=== PATIENT | female | born 1985 | race Caucasian/White ===

== ENCOUNTER → 2021-05-09 10:34 | Outpatient (BNVA) | payer BC, MEDICAID, SELFPAY | PROVIDERS: Visit Provider Nurse Practitioner Women's Health | DX: Z34.01 Encounter for supervision of normal first pregnancy, first trimester (principal) | CPT/HCPCS: 81000 ==

== ENCOUNTER → 2021-05-18 08:51 | Outpatient (BNVA) | payer BC, MEDICAID, SELFPAY | PROVIDERS: Visit Provider Obstetrics & Gynecology | DX: Z34.80 Encounter for supervision of other normal pregnancy, unspecified trimester (principal); Z34.01 Encounter for supervision of normal first pregnancy, first trimester | CPT/HCPCS: 80307; 81000; 85025; 86592; 86762; 86803; 86850; 86900; 87086; 87340; 87806 ==

== ENCOUNTER → 2021-05-31 08:17 | Outpatient (BNVA) | payer BC, MEDICAID, SELFPAY | PROVIDERS: Visit Provider Obstetrics & Gynecology | DX: Z34.01 Encounter for supervision of normal first pregnancy, first trimester (principal) | CPT/HCPCS: 81000; 87481; 87491; 87512; 87591; 87661; 87798; 87799 ==

== ENCOUNTER → 2021-06-22 12:47 | Outpatient (BNVA) | payer BC, MEDICAID, SELFPAY | PROVIDERS: Visit Provider Nurse Practitioner Women's Health | DX: Z34.01 Encounter for supervision of normal first pregnancy, first trimester (principal) | CPT/HCPCS: 81000; 88175 ==

== ENCOUNTER → 2021-08-02 08:48 | Outpatient (BNVA) | payer BC, MEDICAID, SELFPAY | PROVIDERS: Visit Provider Obstetrics & Gynecology | DX: Z34.80 Encounter for supervision of other normal pregnancy, unspecified trimester (principal) | CPT/HCPCS: 81000 ==

== ENCOUNTER → 2021-08-22 08:10 | Outpatient (BNVA) | payer BC, MEDICAID, SELFPAY | PROVIDERS: Visit Provider Nurse Practitioner Women's Health | DX: Z34.80 Encounter for supervision of other normal pregnancy, unspecified trimester (principal) | CPT/HCPCS: 81000 ==

== ENCOUNTER → 2021-09-20 07:46 | Outpatient (BNVA) | payer BC, MEDICAID, SELFPAY | PROVIDERS: Visit Provider Obstetrics & Gynecology | DX: Z34.90 Encounter for supervision of normal pregnancy, unspecified, unspecified trimester (principal) | CPT/HCPCS: 81000 ==

== ENCOUNTER → 2021-09-28 09:34 | Outpatient (BNVA) | payer BC, MEDICAID, SELFPAY | PROVIDERS: Visit Provider Obstetrics & Gynecology | DX: Z34.02 Encounter for supervision of normal first pregnancy, second trimester (principal) | CPT/HCPCS: 82950; 85025 ==

== ENCOUNTER → 2021-10-04 08:29 | Outpatient (BNVA) | payer BC, MEDICAID, SELFPAY | PROVIDERS: Visit Provider Obstetrics & Gynecology | DX: Z34.80 Encounter for supervision of other normal pregnancy, unspecified trimester (principal) | CPT/HCPCS: 81000 ==

== ENCOUNTER → 2021-10-18 08:42 | Outpatient (BNVA) | payer BC, MEDICAID, SELFPAY | PROVIDERS: Visit Provider Obstetrics & Gynecology | DX: Z34.80 Encounter for supervision of other normal pregnancy, unspecified trimester (principal) | CPT/HCPCS: 81000 ==

== ENCOUNTER 2021-10-31 13:46 | Outpatient (CLI) | payer BC, MEDICAID, SELFPAY ==
[2021-10-31 14:00] VITALS: BMI 29.5
[2021-10-31 14:02] VITALS: TEMP 35.8
[2021-10-31 14:03] VITALS: BP 116/83; PULSE 68
[2021-10-31 14:11] VITALS: RESP 18
[2021-10-31 14:21] VITALS: BP 115/83; PULSE 74
== END 2021-10-31 14:37 | disposition home or self-care (01) ==
LOC: OPOB 14:00 → OBGYN 14:01
PROVIDERS: Visit Provider Obstetrics & Gynecology
DX: O99.891 Other specified diseases and conditions complicating pregnancy (principal); R42 Dizziness and giddiness; Z3A.00 Weeks of gestation of pregnancy not specified
CPT/HCPCS: 59025; 99211

== ENCOUNTER 2021-10-31 14:40 | Emergency (ER) | payer BC, MEDICAID, SELFPAY ==
[2021-10-31 15:12] VITALS: BP 135/85; PULSE 78; RESP 18; TEMP 36.2; O2SAT 99; BMI 29.2
--- NOTE | 2021-10-31 15:27 | ED_ITS ---
HPI - Dizziness General: Chief Complaint: Dizziness Stated Complaint: dizzy Time Seen by Provider: 10/31/21 15:19 History of Present Illness: HPI Narrative: Patient states that she had an episode of dizziness after she Received her lidocaine injection at the dentist office today. She got her tooth pulled and she is been doing fine since episode of dizziness which lasted probably about 5 to 10 minutes. She had a similar episode couple weeks ago. Has seen her OB and lab work checked out normal. Exam was normal also at that time. She goes and sees a specialist for her baby ultrasound tomorrow which her baby has an enlarged kidney. Said she feels fine right now would like to have a note for work ready go home. MD elicited complaint: dizziness Exacerbating factors: other (Dental procedure) Associated symptoms: Reports no associated symptoms; Denies chest pain, chills, headache(s), nausea, nasal congestion or vomiting Associated neuro symptoms: Reports no associated symptoms Review of Systems Narrative: 34 weeks . Const: Denies: fever(s), chills or body aches Eyes: Denies: change in vision or blurry vision ENMT: Denies: throat pain or nasal congestion Card: Denies: chest pain or dyspnea on exertion Resp: Denies: dyspnea, productive cough or non-productive cough GI: Denies: abdominal pain, nausea or vomiting Musc: Denies: extremity pain Skin/Breast: Denies: rash Neuro: Reports: dizziness (Isolated episode today after lidocaine injection for tooth extraction); Denies: headache(s) Psych: Denies: anxiety or depression Enoc/Lymph: Denies: easy bruising PFSH ED PFSH: Medical History No pertinent past medical history neghx: htn,dm,thyroid,dvt/pe PCP: None Surgical History No pertinent past surgical history Family History Family/Other Breast cancer Paternal Aunt--dx age 50's Paternal Aunt-- dx age 40's Stroke Paternal Uncle Brother Diabetes Mother Hypercholesteremia Hypertension Stroke Denies family history of Colon cancer Ovarian cancer Heart disease Uterine cancer Thyroid disease Physical Exam Const: COMMON NORMALS: no acute distress, average body habitus and patient oriented x3 HENMT: COMMON NORMALS: normocephalic, TM's normal bilaterally and Normal external nose present HEAD & SCALP: normal to inspection and normocephalic FACE & SINUS: normal facial exam NOSE: Normal external nose present TYMPANIC MEMBRANE: TM's normal bilaterally MOUTH: Normal oral and palatal mucosa present Eye: COMMON NORMALS: conjunctivae normal GENERAL EYE: appearance normal, both eyes and all related structures CONJUNCTIVA: Yes conjunctivae normal Neck/C-Spine: COMMON NORMALS: no JVD Chest: COMMONS NORMALS: normal inspection of the chest Resp: COMMON NORMALS: normal respiratory effort and clear to auscultation bilaterally AUSCULTATION: clear to auscultation bilaterally Cardio: COMMON NORMALS: no JVD, regular rate and regular rhythm RATE: regular rate RHYTHM: regular rhythm GI: COMMON NORMALS: Normal to inspection, nondistended, normoactive bowel sounds present : OTHER: Baby is obviously moving on palpation of the abdomen. Extremity: COMMON NORMALS: normal to inspection and full ROM Neuro: COMMON NORMALS: patient oriented x3 and moves all extremities Course Vital Signs: Vital signs: Vital Signs Temperature 97.2 F L 10/31/21 15:12 Pulse Rate 78 10/31/21 15:12 Respiratory Rate 18 10/31/21 15:12 Blood Pressure 135/85 10/31/21 15:12 Pulse Oximetry 99 10/31/21 15:12 Discharge Plan Discharge Patient Disposition: Home Clinical Impression: Dizziness Condition: Stable Prescriptions: No Action prenat.vits,tyesha,mee-[id number] Tablet 1 tab PO DAILY RF: 0 acetaminophen [Tylenol] 325 mg capsule 325 mg PO QID PRNRF: 0 Discharge Orders: Discharge ED (Routine); Ordered 10/31/21 Ordered By: Memo Marion Discharge Diet: Usual diet Discharge Activity: Increase activity as tolerated Activity Restrictions/Additional Instructions: Make sure you drink plenty of fluids follow-up with your OB as scheduled. Take off next few days at work get some rest. Follow-up here if you have worsening symptoms. 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
== END 2021-10-31 15:34 | disposition home or self-care (01) ==
PROVIDERS: Emergency Provider Nurse Practitioner Family
DX: R42 Dizziness and giddiness (principal)
CPT/HCPCS: 99281

== ENCOUNTER → 2021-11-02 12:50 | Outpatient (BNVA) | payer BC, MEDICAID, SELFPAY | PROVIDERS: Visit Provider Obstetrics & Gynecology | DX: Z34.80 Encounter for supervision of other normal pregnancy, unspecified trimester (principal) | CPT/HCPCS: 81000 ==

== ENCOUNTER → 2021-11-15 09:30 | Outpatient (BNVA) | payer BC, MEDICAID, SELFPAY | PROVIDERS: Visit Provider Obstetrics & Gynecology | DX: Z34.80 Encounter for supervision of other normal pregnancy, unspecified trimester (principal) | CPT/HCPCS: 81000; 87081 ==

== ENCOUNTER → 2021-11-19 10:48 | Outpatient (BNVA) | payer BC, MEDICAID, SELFPAY | PROVIDERS: Visit Provider Obstetrics & Gynecology | DX: Z34.80 Encounter for supervision of other normal pregnancy, unspecified trimester (principal) | CPT/HCPCS: 81000 ==

== ENCOUNTER → 2021-11-29 08:31 | Outpatient (BNVA) | payer BC, MEDICAID, SELFPAY | PROVIDERS: Visit Provider Obstetrics & Gynecology | DX: Z34.80 Encounter for supervision of other normal pregnancy, unspecified trimester (principal) | CPT/HCPCS: 81000 ==

== ENCOUNTER 2021-12-04 05:43 | Inpatient (IN) | payer BC, MEDICAID, SELFPAY ==
[2021-12-04] VITALS (30 sets, daily range): BP systolic 118–141; BP diastolic 62–101; PULSE 66–89; RESP 16–18; TEMP 36.1–37.3; O2SAT 97–100; BMI 31.4
[2021-12-04] MEDS: lactated ringers 1,000 ML 999 ML IV (06:00)
[2021-12-04 06:23] LABS: Basophils # 0.1 10^3/uL (0.0-0.1); Basophils % 0.3 %; Eosinophils # 0.8 10^3/uL (0.0-0.8); Eosinophils % 5.7 %; Hematocrit 40.6 % (37.0-47.0); Hemoglobin 13.9 g/dL (11.5-15.3); Lymphocytes # 2.3 10^3/uL (0.8-4.8); Mean Corpuscular HGB Conc 34.2 g/dL (30.0-36.0); Mean Corpuscular Hemoglobin 29.7 pg (28.0-34.0); Mean Corpuscular Volume 86.8 fl (81-99); Monocytes # 1.3 10^3/uL (0.2-0.9); Monocytes % 9.2 %; Neutrophils # 9.91 10^3/uL (1.8-7.7); Nucleated Red Blood Cells % 0 %; Platelet Count 221 10^3/cmm (130-400); Red Blood Count 4.68 10^6/uL (4.1-5.3); Red Cell Distribution Width 11.7 % (12.1-15.1); White Blood Count 14.6 10^3/uL (4.0-10.0)
[2021-12-04 06:47] LABS: Anion Gap 16.1 (5-19); Blood Urea Nitrogen 6 mg/dL (6-20); Carbon Dioxide 18 mmol/L (22-29); Chloride 105 mmol/L (98-107); Glomerular Filtration Rate 141.2 mL/min (90-130); Glucose 85 mg/dL (65-115); Osmolality Calculated 277 mOsm/kg (285-295); Potassium 4.1 mmol/L (3.5-5.1); Sodium 135 mmol/L (136-145)
[2021-12-04] MEDS: citric acid-sodium citrate 30 mL UDC PO (06:54)
[2021-12-04] MEDS: metoclopramide 5 mg/mL SDV 2 mL 10 MG IVP (06:54)
[2021-12-04] MEDS: famotidine 20 mg/2 mL INJ IVP (06:54)
--- NOTE | 2021-12-04 06:59 | P.ANESASSM_ITS ---
Pre-Anesthetic Assessment Pre-Anesthetic Assessment: Height/Weight: Height 1.63 m Weight 83.007 kg Temp Pulse Resp BP Pulse Ox 99.1 F 80 17 125/80 100 12/04/21 06:28 12/04/21 06:39 12/04/21 05:55 12/04/21 05:58 12/04/21 06:39 Proposed Procedure: Operation Date: 12/04/21 07:00 Proposed Procedures p Section 34181/renal ab in fetus O35.8xxO(Not Applicable) - Chuyita Shaw MD Last intake: Intake Last Liquid Date 12/04/21 Last Liquid Time 00:15 Last Solid Date 12/03/21 Last Solid Time 18:30 Social: Social History: No alcohol and No tobacco Airway: Submandibular: WNL Cervical ROM: WNL MP: 4 Dentition: Chipped History/ROS: No significant history except as noted and No significant complaints Anesthetic Plan: ASA status: 2 Anesthesia: Anesthesia Evaluation, Eval. for regional block and Regional (specify below) (spinal) Risk of > 500 ml blood loss (7ml/kg in children): Yes, adequate IV access and fluids planned PFSH Anesthesia PFSH: Medical History No pertinent past medical history neghx: htn,dm,thyroid,dvt/pe PCP: None Surgical History No pertinent past surgical history Family History Family/Other Breast cancer Paternal Aunt--dx age 50's Paternal Aunt-- dx age 40's Stroke Paternal Uncle Brother Diabetes Mother Hypercholesteremia Hypertension Stroke Denies family history of Colon cancer Ovarian cancer Heart disease Uterine cancer Thyroid disease Female Reproductive History: : 1 Data Anesthesia CBC & Chem 7: 12/04/21 05:40 12/04/21 06:18 Other Labs: Laboratory Results - last 48 hr 12/04/21 12/04/21 05:40 06:18 WBC 14.6 H RBC 4.68 Hgb 13.9 Hct 40.6 MCV 86.8 MCH 29.7 MCHC 34.2 RDW 11.7 L Plt Count 221 MPV 12.0 H Neut % (Auto) 68.0 Lymph % (Auto) 16.0 [place] % (Auto) 9.2 Eos % (Auto) 5.7 Baso % (Auto) 0.3 Neut # (Auto) 9.91 H Lymph # (Auto) 2.3 [place] # (Auto) 1.3 H Eos # (Auto) 0.8 Baso # (Auto) 0.1 Nucleated RBC % (auto) 0 Nucleated RBCs # 0.0 Sodium 135 L Potassium 4.1 Chloride 105 Carbon Dioxide 18 L Anion Gap 16.1 BUN 6 Creatinine 0.5 GFR Calculation 141.2 H Glucose 85 Calculated Osmolality 277 L Calcium 8.0 L Cardiac Studies: No Data to Display
--- NOTE | 2021-12-04 07:02 | PM.OPHPUD ---
Labor & Delivery H&P Update Date of Procedure: December 04, 2021 Date H&P Performed: 11/29/21 H&P update information: I have reviewed H&P completed within last 30 days, I have examined patient prior to procedure and Changes to prior documentation as noted here Admission Diagnosis: Preop diagnosis: iup@ 39 weeks, 1 day, desires primary Planned procedure: Operation Date: 12/04/21 07:00 Proposed Procedures p Section 54670/renal ab in fetus O35.8xxO(Not Applicable) - Chuyita Shaw MD Related Problem List Diagnoses (1) Renal abnormality of fetus on ultrasound: (2) Supervision of normal :
--- NOTE | 2021-12-04 09:06 | PM.OP ---
Operative Report Date of procedure: December 04, 2021 Pre-op Diagnosis: iup@ 39 weeks, 1 day, desires primary Post-op diagnosis: same Post-op Findings: term male in the cephalic presentation Procedure Done: primary Specimens removed/disposition: placenta Pathology: none sent Surgeon: Chuyita Shaw Anesthesia: Other (spinal) Estimated blood loss (mL): 750 IV fluids (mL): 1,700 Urine output (mL): 50 Complications: none Condition: stable Disposition: floor Brief History: The patient was seen for OB care. She desired a primary for delivery Procedure: The patient was taken to the operating room where spinal anesthesia was administered and found to be adequate. She was prepped and draped in the normal sterile fashion in the dorsal supine position with a leftward tilt. A Pfannenstiel skin incision was made and carried down to the underlying layer of fascia. The fascia was nicked in the midline and extended laterally with the Aggarwal scissors. The fascia was then tented up and the rectus muscles dissected off sharply. The rectus muscles were and the peritoneum entered bluntly with the digit. The peritoneal incision was extended superiorly and inferiorly with good visualization of the bladder. The Andi O retractor was placed. It was clear of any bowel or omentum. The bladder flap was created sharply with the Metzenbaum scissors. A low transverse uterine incision was made and carried down to the bag of water. The bag of water was ruptured and the uterine incision extended cephalocaudad. The scalp was grasped and brought through the incision. The nose and mouth were bulb suctioned. The shoulders and body delivered atraumatically. The baby was allowed to rest, while being dried, for 1 minute and then the cord was clamped and cut. The baby was handed to the waiting cash applications coordinator. The placenta was delivered by expression. The uterus was exteriorized and cleared of all clots and debris. The uterine incision was closed with 0 Vicryl in a running fashion. A second imbricating layer of 3-0 Monocryl was used to close the uterus. The bladder flap was closed with 3-0 Monocryl. There was excellent hemostasis. The Andi O retractor was removed. The uterus was returned to the abdomen. The peritoneum was closed with 3-0 Monocryl, incorporating the rectus muscle. The fascia was closed with 0 Vicryl in 2 separate sutures overlapping in the midline. The skin was closed with absorbable joaquin. Apgars on baby 8 at 1 minute and 9 at 5 minutes. weight 6 pounds 6 ounces. Mother and baby were stable post delivery.
[2021-12-04] MEDS: ketorolac 30 mg/mL INJ IVP ×3 (09:38→20:50)
[2021-12-04] MEDS: dextrose 5%-lactated ringers 1,000 ML 125 ML IV (09:38)
--- NOTE | 2021-12-04 10:02 | PC.NURSE ---
IV site being maintained by anesthesia at this time
--- NOTE | 2021-12-04 11:24 | ANE.PACU2 ---
Inpatient post-anesthesia follow up: Airway intact: Yes Vital signs: Temperature 99.1 F Pulse Rate 78 Respiratory Rate 18 Blood Pressure 132/78 Pulse Oximetry 99 Oxygen Delivery Me thod Room Air Oxygen Flow Rate Fraction of Inspir ed Oxygen Hydration adequate: Yes Nausea and vomiting: No Pain level: 2 Mental status: Baseline
[2021-12-04] MEDS: lanolin oint 7 gm 1 APPLIC TOPICAL (18:10)
[2021-12-04] MEDS: docusate sodium 100 mg Capsule PO (18:11)
[2021-12-04 21:12] LABS: Hematocrit 30.3 % (37.0-47.0); Hemoglobin 10.4 g/dL (11.5-15.3); Mean Corpuscular HGB Conc 34.3 g/dL (30.0-36.0); Mean Corpuscular Hemoglobin 30.1 pg (28.0-34.0); Mean Corpuscular Volume 87.8 fl (81-99); Mean Platelet Volume 11.9 fL (7.4-10.4); Platelet Count 193 10^3/cmm (130-400); Red Blood Count 3.45 10^6/uL (4.1-5.3); Red Cell Distribution Width 11.9 % (12.1-15.1); White Blood Count 14.8 10^3/uL (4.0-10.0)
[2021-12-05] MEDS: docusate sodium 100 mg Capsule PO ×2 (08:09→21:29)
[2021-12-05] MEDS: HYDROcodone-acetaminophen 5-325 mg Tablet PO ×3 (08:09→21:29)
[2021-12-05] MEDS: prenatal vitamin Capsule 1 CAP PO (08:09)
[2021-12-05 09:30] VITALS: BP 108/83; PULSE 108; RESP 18; O2SAT 99
--- NOTE | 2021-12-05 10:11 | PM.PN ---
Subjective Subjective: Interval history: The patient is doing well this morning. Vitals/I&O/Wt Last Vital Signs Temp 98.0 F 12/04/21 12:30 Pulse 79 12/04/21 19:00 Resp 16 12/04/21 19:00 BP 128/73 12/04/21 19:00 Pulse Ox 97 12/04/21 19:00 12/04/21 12/05/21 12/05/21 22:59 06:59 14:59 Intake Total 1700 / 3400 Output Total 350 / 2000 400 / 2400 700 / 700 Balance 1350 / 1400 -400 / 1000 -700 / -700 Weight last 48 hrs Weight 183 lb Physical Exam Narrative: EXAM NARRATIVE: The patient is feeling well. She is breast feeding. She is sitting up on the side of the bed when I entered the room. Const: COMMON NORMALS: no acute distress, average body habitus, patient oriented x3, no limitations, healthy appearing, alert and well nourished GENERAL APPEARANCE: cooperative, comfortable, well kempt and well developed ORIENTATION/CONSCIOUSNESS: Yes awake, Yes oriented to person, Yes oriented to place and Yes oriented to time Resp: COMMON NORMALS: normal respiratory effort EFFORT & INSPECTION: Yes able to speak in complete sentences GI: COMMON NORMALS: Soft to palpation and non-tender PALPATION: Yes Soft to palpation Extremity: COMMON NORMALS: no calf tenderness Neuro: COMMON NORMALS: patient oriented x3 SENSORIUM/ORIENTATION: Yes alert, Yes oriented to person, Yes oriented to place and Yes oriented to time Psych: APPEARANCE: Yes well kempt Skin: WOUNDS: Yes surgical site (clean/dry/intact) Urinary Catheter Management^: Rodriguez: Cath Placed During This Visit: yes, but has since been removed by the nurse Reason for Continuing Indwelling Catheter: Decision to DC Catheter Urinary Catheter Date of Insertion: 12/04/21 Urinary Catheter Time of Insertion: 07:30 Date Urinary Catheter Removed: 12/04/21 Time Urinary Catheter Discontinued: 18:10 Data : 12/04/21 20:48 12/04/21 06:18 A&P Assessment and plan (1) Supervision of normal : doing well postoperatively routine pp and postop care likely home tomorrow Status: Acute Qualifiers: Normal : normal first Trimester: second trimester Qualified Code(s): Z34.02 - Encounter for supervision of normal first , second trimester (2) Renal abnormality of fetus on ultrasound: Status: Acute Attestations Medical Necessity Statement*: She had a yesterday. 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
[2021-12-05] MEDS: ibuprofen 800 mg tablet PO ×2 (14:17→21:29)
[2021-12-05 16:32] VITALS: BP 110/80; PULSE 90; RESP 17; TEMP 37; O2SAT 99
[2021-12-06] MEDS: HYDROcodone-acetaminophen 5-325 mg Tablet PO ×2 (03:26→10:10)
[2021-12-06 03:42] VITALS: BP 122/80; PULSE 65; RESP 16; TEMP 37; O2SAT 99
--- NOTE | 2021-12-06 07:59 | PC.NURSE ---
to room for rounding. Orders received for discharge.
[2021-12-06 08:32] VITALS: BP 133/82; TEMP 37
--- NOTE | 2021-12-06 08:57 | PM.DCS ---
Discharge Providers Date of Admission: 12/04/21 05:43 Date of Discharge: December 06, 2021 Attending Provider at Admission: Chuyita Shaw MD Attending Provider at Discharge: Chuyita Shaw MD Diagnoses at Discharge Discharge Diagnosis (1) Supervision of normal : Status: Acute Qualifiers: Normal : normal first Trimester: second trimester Qualified Code(s): Z34.02 - Encounter for supervision of normal first , second trimester (2) Renal abnormality of fetus on ultrasound: Status: Acute Reason for Visit Reason for Visit: nhi 12/04/21 Hospital Course Hospital Course The patient was admitted for a primary . she did well postoperatively and was ready for discharge on day #2 Physical Exam Narrative: EXAM NARRATIVE: The patient is doing well this morning. She is ambulating and has no concerns. Pain is well controlled. Const: COMMON NORMALS: no acute distress, average body habitus, patient oriented x3, no limitations, healthy appearing, alert and well nourished GENERAL APPEARANCE: cooperative, comfortable, well kempt and well developed ORIENTATION/CONSCIOUSNESS: Yes awake, Yes oriented to person, Yes oriented to place and Yes oriented to time Resp: COMMON NORMALS: normal respiratory effort EFFORT & INSPECTION: Yes able to speak in complete sentences GI: COMMON NORMALS: Soft to palpation and non-tender PALPATION: Yes Soft to palpation Extremity: COMMON NORMALS: no calf tenderness Neuro: COMMON NORMALS: patient oriented x3 SENSORIUM/ORIENTATION: Yes alert, Yes oriented to person, Yes oriented to place and Yes oriented to time Psych: APPEARANCE: Yes well kempt Skin: WOUNDS: Yes surgical site (clean/dry/intact. ) Urinary Catheter Management^: Rodriguez: Cath Placed During This Visit: yes, but has since been removed by the nurse Reason for Continuing Indwelling Catheter: Decision to DC Catheter Urinary Catheter Date of Insertion: 12/04/21 Urinary Catheter Time of Insertion: 07:30 Date Urinary Catheter Removed: 12/04/21 Time Urinary Catheter Discontinued: 18:10 Discharge Data Data Completed and Pending: Pending at discharge Category Date Time Status Complete Blood Co unt w/Auto AM LABS Lab 12/06/21 04:00 Ordered Vitals: Last Vital Signs Temp 98.6 F 12/06/21 08:32 Pulse 65 12/06/21 03:42 Resp 16 12/06/21 03:42 BP 133/82 12/06/21 08:32 Pulse Ox 99 12/06/21 03:42 Discharge Plan Discharge Patient Disposition: Home Condition: Stable Prescriptions: New ibuprofen 800 mg Tablet 800 mg PO TID Qty: 30 RF: 0 hydrocodone-acetaminophen 5-325 mg Tablet 1 tab PO Q4H PRN (Reason: Moderate To Severe Pain) Qty: 30 RF: 0 Continued prenat.vits,tyesha,vlp-jwci-vipyp Tablet 1 tab PO DAILY RF: 0 Discontinued acetaminophen [Tylenol] 325 mg capsule 325 mg PO QID PRN (Reason: Pain) RF: 0 Discharge Orders: Discharge Order (Routine); Ordered 12/06/21 Ordered By: Chuyita Shaw Referrals: Chuyita Shaw MD [Physician] - 12/10/21 9:00 am (Your 1 week incision check is scheduled for 12/10/21 @9:00. Your 6 week post- appointment is scheduled for 01/17/22 @1:45. ) Discharge Diet: Regular Patient Instructions: Depression (DC), Bleeding (DC), Preeclampsia and Eclampsia After Delivery (GEN), OB [facility], OB Discharge Report, OB Food/Drug Interaction Guide, OB Care at Home, Opioid Safety, OB Home Care Discharge Attestations Time Spent in Discharge Care*: less than 30 min Quality Metrics Clinical Quality Measures During this hospital stay, did patient experience: None Coding Level of Care Code Acute Chg FW DC note Diagnoses Supervision of normal Z34.02 Normal : normal first Trimester: second trimester Renal abnormality of fetus on ultrasound O35.8XX0
[2021-12-06] MEDS: docusate sodium 100 mg Capsule PO (08:58)
[2021-12-06] MEDS: prenatal vitamin Capsule 1 CAP PO (08:58)
[2021-12-06] MEDS: ibuprofen 800 mg tablet PO (08:58)
[2021-12-06 10:19] VITALS: BP 124/73; PULSE 102; RESP 15; TEMP 36.8
--- NOTE | 2021-12-06 10:20 | PC.NURSE ---
Patient verbalized understanding of all discharge instructions. Patient is aware of medications being sent to pharmacy. No further needs. Patient walked with RN to exit doors of hospital to vehicle.
== END 2021-12-06 10:12 | disposition home or self-care (01) | DRG 788 ==
PROVIDERS: Admitting Provider Obstetrics & Gynecology; Visit Provider Obstetrics & Gynecology
PROC: 10D00Z1 Extraction of Products of Conception, Low, Open Approach (ICD-10-PCS; CPT 59514; principal; 2021-12-04 07:00)
DX: O80 Encounter for full-term uncomplicated delivery (principal); Z3A.39 39 weeks gestation of pregnancy; Z37.0 Single live birth
CPT/HCPCS: 36415; 51702; 59025; 80048; 85025; 85027; 86900; J0690; J1885; J2274; J2370; J2405; J2765; J3490